=== PATIENT | male | born 2000 | race Two or more races ===

== ENCOUNTER 2019-02-22 11:04 | Emergency (ER) | payer MEDICAID ==
[~2019-02-22] VITALS: Ht 180.3 cm; Wt 104.3 kg
[2019-02-22 12:14] VITALS: BP 124/71
[2019-02-22 14:37] LABS: INR 1.05 (0.9-1.15); Partial Thromboplastin Time 29.1 sec (23.64-32.05)
== END 2019-02-22 14:51 | disposition home or self-care (01) ==
LOC: ER 11:04
DX: M25.531 Pain in right wrist (principal)
CPT/HCPCS: 36415; 70450; 73110; 85610; 85730

== ENCOUNTER 2019-09-19 08:12 | Inpatient (IN) | payer MEDICAID, OTHER ==
[~2019-09-19] VITALS: Ht 180.3 cm; Wt 104.8 kg
[2019-09-19] MEDS ORDERED: SODIUM CHLORIDE 0.9% 1,000 ML IV ONE (10:05)
[2019-09-19 10:37] LABS: Basophils # (auto) 0 uL; Basophils % (auto) 0.7 % (0.0-2.0); Eosinophils # (auto) 0 uL; Eosinophils % (auto) 0.8 % (0.0-7.0); Hematocrit 49.1 % (41.0-53.0); Hemoglobin 17.1 g/dL (13.5-17.5); Lymphocytes # (auto) 1.5 uL; Lymphocytes % (auto) 25.9 % (10.0-50.0); Mean Corpuscular Hgb Conc. 34.7 g/dL (32.0-36.0); Mean Corpuscular Volume 89.1 fL (80.0-100.0); Monocytes # (auto) 0.3 uL; Monocytes % (auto) 5.6 % (0.0-12.0); Neutrophils # (auto) 3.8 uL; Nucleated Red Blood Cells % 0.3 %; Platelet Count (auto) 216 10^3/uL (140-450); Red Blood Cells 5.52 10^6/uL (4.5-5.90); Red Cell Distribution Width 13.1 % (11.8-14.3); White Blood Cell 5.7 10^3/uL (4.4-10.8)
[2019-09-19 10:54] LABS: Albumin 4.3 g/dL (3.4-5.0); Calcium 9.7 mg/dL (8.5-10.1); Magnesium 2.6 mg/dL (1.6-2.6)
[2019-09-19 10:58] LABS: BUN/Creatinine Ratio 12.6; Bilirubin, Total 1.2 mg/dL (0.2-1.0); Total Protein 8.7 g/dL (6.4-8.2)
[2019-09-19 11:12] LABS: Potassium 4.8 mmol/L (3.5-5.1)
[2019-09-19 11:38] LABS: INR 1.09 (0.9-1.15); Partial Thromboplastin Time 29.2 sec (23.64-32.05)
[2019-09-19 12:24] LABS: Urine Bacteria NONE SEEN /hpf (None Seen); Urine Blood Negative /uL (Negative); Urine Specific Gravity 1.026 (1.001-1.035); Urine WBC 1 /hpf (0 - 3)
[2019-09-19 12:37] LABS: Alcohol, Urine < 3.0 mg/dL (0-5); Amphetamine Screen, Urine NEGATIVE (NEGATIVE); Barbiturate Scree,Urine NEGATIVE (NEGATIVE); Benzodiazephine Screen, Urine NEGATIVE (NEGATIVE); Cannabinoid Screen, Urine POSITIVE (NEGATIVE); Cocaine Screen, Urine NEGATIVE (NEGATIVE); Opiate Scree,Urine NEGATIVE (NEGATIVE); Phencyclidine Screen, Urine NEGATIVE (NEGATIVE)
[2019-09-19] MEDS ORDERED: MORPHINE SULF INJ 2 MG/ML SYRINGE 1ML IV PRN (17:00)
[2019-09-19] MEDS ORDERED: NITROGLYCERIN 0.4 MG SL TAB SL PRN (17:00)
[2019-09-19 17:52] LABS: Albumin 3.9 g/dL (3.4-5.0); Calcium 9.1 mg/dL (8.5-10.1)
[2019-09-19 17:53] LABS: BUN/Creatinine Ratio 12.1
[2019-09-19 17:56] LABS: Bilirubin, Total 1.1 mg/dL (0.2-1.0); Total Protein 8.2 g/dL (6.4-8.2)
[2019-09-19] MEDS ORDERED: WARF6TAB PO (18:09)
[2019-09-19 22:00] VITALS: BP 112/60
[2019-09-20 05:00] VITALS: BP 108/59
[2019-09-20 06:04] LABS: Basophils # (auto) 0 uL; Basophils % (auto) 0.8 % (0.0-2.0); Eosinophils # (auto) 0.1 uL; Eosinophils % (auto) 1.5 % (0.0-7.0); Hematocrit 46.5 % (41.0-53.0); Hemoglobin 16.2 g/dL (13.5-17.5); Lymphocytes # (auto) 1.8 uL; Lymphocytes % (auto) 32.3 % (10.0-50.0); Mean Corpuscular Hemoglobin 31.5 pg (28.0-32.0); Mean Corpuscular Hgb Conc. 34.9 g/dL (32.0-36.0); Mean Corpuscular Volume 90.2 fL (80.0-100.0); Monocytes # (auto) 0.3 uL; Monocytes % (auto) 6.1 % (0.0-12.0); Neutrophils # (auto) 3.4 uL; Neutrophils % (auto) 59.3 % (37.0-80.0); Nucleated Red Blood Cells % 0.2 %; Platelet Count (auto) 190 10^3/uL (140-450); Red Blood Cells 5.16 10^6/uL (4.5-5.90); Red Cell Distribution Width 12.9 % (11.8-14.3); White Blood Cell 5.7 10^3/uL (4.4-10.8)
[2019-09-20 09:00] VITALS: BP 107/55
[2019-09-20] MEDS ORDERED: ATORVASTATIN 20 MG TAB PO SCH (10:00)
[2019-09-20] MEDS ORDERED: ASPirin 325 MG TAB PO SCH (10:00)
[2019-09-20 13:00] VITALS: BP 126/65
[2019-09-20 16:45] VITALS: BP 126/65
== END 2019-09-20 18:30 | disposition home or self-care (01) | DRG 48 ==
LOC: ER 08:12 → TELE-WESTW 08:13
PROVIDERS: ADMIT Internal Medicine; ATTEND Internal Medicine
DX: G51.0 Bell's palsy (principal); D68.9 Coagulation defect, unspecified; E11.9 Type 2 diabetes mellitus without complications; R20.0 Anesthesia of skin; Z86.73 Personal history of transient ischemic attack (TIA), and cerebral infarction without residual deficits; Z82.3 Family history of stroke; Z79.01 Long term (current) use of anticoagulants; Z91.14 Patient's other noncompliance with medication regimen; Z83.3 Family history of diabetes mellitus
CPT/HCPCS: 36415; 70450; 70545; 70547; 70551; 71046; 80053; 80307; 81001; 81241; 83735; 84443; 85025; 85302; 85305; 85306; 85610; 85613; 85670; 85705; 85730; 85732; 86147; 93005; 93306; 96360; G0378